=== PATIENT | female | born 1940 | race Caucasian/White ===

== ENCOUNTER → 2017-05-29 | Outpatient (CLI) | payer OTHER, MEDICARE ==
[~2017-05-29] VITALS: Ht 180.3 cm; Wt 100.2 kg
[~2017-05-29] MED LIST: CALCIUM CITRAT1 EA19 PO; CARISOPRODOL 3350 MG PO; CO Q-1010 MG PO; COSAMIN DS CAP1 EAC1 PO; FISH OIL 1,2001 EAC4 PO; MAGNESIUM400 MG PO; NABUMETONE 750750 M1 PO; NORCO 5-325 TA1 EACH PO; PRAVACHOL 20 MG20 M1 PO; PREDNISONE 5 MG5 M1 PO; SUPER B COMPLE1 EAC3 PO; VITAMIN D1000 UNI1 PO; ZANTAC 150MG T150 M1 PO
--- NOTE | ~2017-05-29 | HPC ---
[facility] [place] [address] PAIN MANAGEMENT CONSULTATION Name: LIZETH CORDOVA REID Room #: REG CORTNEY Hebert#: [id number] Admission: 05/29/17 Attend Phys: Ayden Pettit DO Discharge: Date of : 41 Report #: [id number] THIS REPORT FOR: //name// CC: Rick Pettit DATE OF SERVICE: 05/29/2017 HISTORY OF PRESENT ILLNESS: Ms. Cordova is a pleasant 76-year-old female, seen in consultation at the request of Dr. Kang for evaluation of pain in left hip, low back. The patient was prior seen greater than 4 years ago for radicular pain. She was referred by Dr. Kang for a new pain, right low back; consideration for epidural injection, facet joint injections, hip intraarticular injection or injections as indicated. Ms. Cordova provides us with a detailed history for her current pain generator. She notes she developed pain in the right hip on 04/04/2016. No specific antecedent trauma, though she had been sleeping on her side for a period of time. Pain got worse. She had an anti-inflammatory injection in her hip by nurse practitioner, Mamadou. Was given some hydrocodone with nominal efficacy (injection was on 04/10/2017). On 04/25/2017, she followed up with Dr. Kang. He gave her steroid injection in the right hip. It seemed to help for a short bit, and gave her Medrol Dosepak, gabapentin and Percocet. By 05/12, pain was not improved. It was getting worse. She was having difficulty walking. Pain was in the right buttock. Dr. Kang did an adjustment on her right hip, send her for x-rays. While the x-rays did show an old L1 compression fracture, it showed no other significant pathology. Following the hip adjustment, the hip pain got better for a short period, but she had pain in mid back that night. They did renew the Medrol Dosepak and the Percocet. She notes the pain moved from the right hip and back, into the left side, after the hip adjustment. The right hip has been relatively unremarkable since that time. Beginning about 05/14/2017, pain has been a problem in that left hip, to the point that it is excruciating with walking. She followed up with her chiropractor who did some adjustments and acupuncture, all with nominal efficacy. Pain has continued on the left side. Fortunately, the right hip really is unremarkable, but she is still having significant pain with walking. She ultimately ended up in the [facility] ER on 05/19/2017. They did an MRI of the back and hips (she did bring those copies with her today). Severe pain in the hip, buttock, posterior aspect in the leg. She was started on naproxen and orphenadrine, with again only nominal efficacy. She followed up with Dr. Kang on 05/26/2017. He readjusted the right hip, gave the left hip an injection and referred her to the dc. Currently, she notes the pain is exacerbated with standing and walking. Pain is [facility] [address] [place] [address] PAIN MANAGEMENT CONSULTATION Name: LIZETH CORDOVA Room #: REG CORTNEY Hebert#: [id number] Admission: 05/29/17 Attend Phys: Ayden Pettit, DO Discharge: Date of : 41 Report #: [id number] exclusively in the left buttock, a little bit the low back and into the groin. She notes episodically once or twice she has had pain radiating below the knee, but typically pain is in the posterior buttock, hip and groin in the left side. She rates it anywhere from 8-10 on a VAS. REVIEW OF SYSTEMS: Complete review of systems is attached to chart and gone over with the patient. She is . She does not smoke, drink alcohol to excess. She has enjoyed remarkably good health. She uses a little bit of Lasix p.r.n. with potassium supplement for some lower extremity edema. She takes a statin for dyslipidemia, Zantac for gastroesophageal reflux and Requip for restless legs syndrome. Otherwise, at 76 years of age, Ms. Cordova has enjoyed remarkably good health. She has had some cosmetic surgical procedures, a tonsillectomy and a partial hysterectomy. She has been retired for 7 years. Her pain impact score is 49 on a 50. PHYSICAL EXAMINATION: GENERAL: Reveals a 5 feet, 193 pound female. Subjective pain score is 8 on a VAS. VITAL SIGNS: Blood pressure is elevated at 186/99, pulse is 67, respirations 16. NEUROLOGIC: Cranial nerves 2 through 12 are grossly intact. HEENT: Pupils equal, react to light and accommodation. Extraocular muscles are intact. NECK: Thyroid is unremarkable. Cervical range of motion is full. Upper extremity strength is preserved. HEART: Regular rhythmical without murmur. LUNGS: Clear to auscultation. ABDOMEN: Benign. EXTREMITIES: Rises from chair using armrests. Has an antalgic gait, favoring the left leg. Left hip flexion and rotation exacerbates pain. Straight leg raise, however, is negative. Lower extremity strength is generally symmetric with objective muscles showing perhaps 4/5, but some pain with movement of the left hip and leg and upper thigh. Patellar and Achilles reflexes are preserved. Betty test is modestly positive, but no significant tenderness noted in the SI joint. DIAGNOSTIC STUDIES: Include the aforementioned MRI of the lumbar spine, dated 05/19/2017. There is an old inferior healed compression fracture at L1, 50 percent loss of height, 5 mm anterolisthesis of L4 on L5. This could cause some neural foraminal narrowing, though radiologist notes specifically no significant impingement here. There is some posterior paraspinal muscle atrophy noted. Left hip shows mild degenerative changes involving the hip proper. ASSESSMENT: 1. Left hip degenerative joint disease. 2. Component of SI mediated pain, myofascial pain component, with remote [facility] [address] [place] [address] PAIN MANAGEMENT CONSULTATION Name: LIZETH CORDOVA REID Room #: REG Jt Hebert#: [id number] Admission: 05/29/17 Attend Phys: Ayden Pettit DO Discharge: Date of : 41 Report #: [id number] possibility of being a unique presentation of right lumbar radiculopathy. RECOMMENDATION: Discussion with the patient today about therapeutic option. We have elected to move forward with the left hip joint injection under fluoroscopy today. Follow up in 1 week for reevaluation. We will move forward in 1 week with either a left SI joint injection or lumbar epidural injection under fluoroscopy, depending on clinical exam and efficacy today. Thank you for allowing me to participate in Ms. Cordova's care. I will keep you abreast of her progress. PROCEDURE NOTE: Left hip joint injection under fluoroscopy. DESCRIPTION OF PROCEDURE: After written informed consent was obtained, the patient was taken to fluoroscopy suite, placed in the supine position. Skin overlying the left hip was cleansed with ChloraPrep. Skin wheal with Xylocaine was raised. A 22-gauge stylet needle was placed to contact the left hip joint. Negative aspiration was accomplished. Initial needle placement did cause a little irritation of the femoral nerve. The needle was repositioned. Second needle position did not reproduce any femoral nerve symptoms. Negative aspiration was accomplished. 1 mL of Omnipaque was injected, which showed spread within the joints. This was followed with 40 mg triamcinolone plus 2 mL of 0.5% preservative-free bupivacaine. Needle was removed. The area was cleansed, Band-Aids applied. The patient was told to use ice to the area today, look for signs of infection. Discharged in stable condition, noting some incremental improvement of baseline pain, in fact noting pain was down to about 5 on a VAS score. Discharged in stable condition. Follow up next week for reevaluation and consideration for left SI or epidural injection under fluoroscopy, depending on clinical exam at that time. <ELECTRONICALLY SIGNED> By: Ayden Pettit DO 05/31/17 0811 [id number] Ayden Pettit DO /nt
[2017-05-29 11:21] VITALS: BP 186/99
== END | disposition home or self-care (01) ==
LOC: PAIN 07:22
DX: M54.16 Radiculopathy, lumbar region (principal); M16.12 Unilateral primary osteoarthritis, left hip; M53.3 Sacrococcygeal disorders, not elsewhere classified; M79.1 Myalgia; Z98.890 Other specified postprocedural states; Z90.710 Acquired absence of both cervix and uterus; E78.5 Hyperlipidemia, unspecified; K21.9 Gastro-esophageal reflux disease without esophagitis; Z79.899 Other long term (current) drug therapy; G25.81 Restless legs syndrome

== ENCOUNTER → 2017-06-05 | Outpatient (CLI) | payer OTHER, MEDICARE ==
[~2017-06-05] VITALS: Ht 177.8 cm; Wt 87.5 kg
[~2017-06-05] MED LIST changes: +FENTANYL1 EAC3; +OXYCODONE HCL PO
--- NOTE | ~2017-06-05 | HPC ---
[facility] [address] [place] [facility] [place] [address] PAIN MANAGEMENT CONSULTATION Name: LIZETH CORDOVA REID Room #: REG GEOFFREYJt Hebert#: [id number] Admission: 06/05/17 Attend Phys: Ayden Pettit DO Discharge: Date of : 41 Report #: [id number] THIS REPORT FOR: //name// CC: Rick Pettit The patient is a delightful 76-year-old female seen 05/29/2017 in consult, diagnosed with lumbar radiculopathy, component of left hip pain. I did a left hip joint injection at that time, we elected to move forward with epidural injection under fluoroscopy today if symptoms do not alon. In the interval since I last saw her, she has had increasing pain. She did have Synvisc type injections in her knees, saw orthopedic surgeon, it sounds like she may actually have had another steroid injection in her left hip within about 4 days. She notes pain is across the low back exacerbated with standing, walking and bending, radiates all the way down the left leg to the foot. ASSESSMENT: Symptomatic lumbar radiculopathy, clinical exam and history, failed hip joint injection, I think the pain is likely more as we discussed at her initial visit. RECOMMENDATION: Proceed with epidural injection under fluoroscopy today. Follow up in 10 days for reevaluation, may consider SI joint injections only if indicated clinically at that time. PROCEDURE NOTE: Lumbar epidural injection under fluoroscopy. PROCEDURE NOTE: After both written and informed consent to include risk of spinal cord damage, increased pain, weakness and dural puncture, the patient was taken to the fluoroscopy suite, placed in the prone position. After sterile prep and drape, a skin wheal with lidocaine was raised. A 22-gauge epidural Tuohy needle was inserted in the midline at L5-S1 with good loss to resistance. Negative aspiration for cerebrospinal fluid or blood was noted. Then 1 mL of Omnipaque under biplanar fluoroscopy showed good spread within the epidural space. This was followed with 80 mg of triamcinolone plus 1 mL of 1.5% preservative-free Xylocaine, 0.5 mL Xylocaine was then injected to flush the needle; it was removed. The patient was monitored for an appropriate period of time and discharged in good and stable condition. By: [id number] Ayden Pettit DO /nt
[2017-06-05 11:51] VITALS: BP 115/57
== END | disposition home or self-care (01) ==
LOC: PAIN 07:17
DX: M54.16 Radiculopathy, lumbar region (principal); M25.552 Pain in left hip; Z98.890 Other specified postprocedural states; Z79.899 Other long term (current) drug therapy

== ENCOUNTER → 2017-06-15 | Outpatient (CLI) | payer OTHER, MEDICARE ==
[~2017-06-15] VITALS: Ht 180.3 cm; Wt 98.4 kg
[~2017-06-15] MED LIST changes: +FUROSEMIDE 20 M20 M1 PO; +POTASSIUM20 PO; +REQUIP3 MG PO
--- NOTE | ~2017-06-15 | HPC ---
[facility] [place] [address] PAIN MANAGEMENT CONSULTATION Name: LIZETH CORDOVA REID Room #: REG CORTNEY [place]ina.#: [id number] Admission: 06/15/17 Attend Phys: Ayden Pettit DO Discharge: Date of : 41 Report #: [id number] THIS REPORT FOR: //name// CC: Rick Pettit DATE OF SERVICE: 06/15/2017 The patient is a very pleasant 76-year-old female seen 06/05/2017. Given epidural injection L5-S1. She noted dramatic improvement of baseline pain though notes pain still remains problematic in the low back. She rates her pain 5 on VAS. She is planning on traveling to the [place] to distribute her sister's ashes, she and a lifelong friend are traveling on to [place] for a cruise. The patient notes that her primary physician has started her on a Duragesic patch at 12 mcg using oxycodone 10 mg 1 or 2 a day. She is seeking multimodal therapy including acupuncture, massage and physical therapy. With ongoing pain that interferes with function, we have elected to repeat epidural injection under fluoroscopy today. I encouraged gradual wean of her opiate analgesics through her general road supervisor physician. Continue with multimodal therapy including range of motion and activity. PHYSICAL EXAMINATION: Shows a 76-year-old female, BMI is 30.3 kilograms per meter squared. Blood pressure 126/57, pulse 87, respirations 20. Rises from chair using armrest. Diffuse tenderness across the low back. Lumbar flexion is modestly limited. Positive straight leg raise on the left, though pain is improving and symptoms appear to be less. She has had again greater than 80% ongoing relief following the epidural injection, which she would like to repeat this today. ASSESSMENT: Symptomatic lumbar radiculopathy. PROCEDURE: Midline lumbar epidural injection under fluoroscopy. PROCEDURE NOTE: After both written and informed consent to include risk of spinal cord damage, increased pain, weakness and dural puncture, the patient was taken to the fluoroscopy suite, placed in the prone position. After sterile prep and drape, a skin wheal with lidocaine was raised. A 22-gauge epidural Tuohy needle was inserted in the midline at L4-L5 with good loss to resistance. Negative aspiration for cerebrospinal fluid or blood was noted. Then 1 mL of Omnipaque under biplanar fluoroscopy showed good spread within the epidural space. This was followed with 80 mg of triamcinolone plus 1 mL of 1.5% preservative-free Xylocaine, 0.5 mL Xylocaine was then injected to flush the needle; it was removed. The patient was monitored for an appropriate period of time and discharged in good and stable condition. [address] [address] PAIN MANAGEMENT CONSULTATION Name: LIZETH CORDOVA Room #: REG CORTNEY Hebert#: [id number] Admission: 06/15/17 Attend Phys: Ayden Pettit DO Discharge: Date of : 41 Report #: [id number] Follow up simply as needed. <ELECTRONICALLY SIGNED> By: Ayden Pettit DO 06/19/17 0840 [id number] Ayden Pettit DO /nt
[2017-06-15 14:16] VITALS: BP 126/57
== END | disposition home or self-care (01) ==
LOC: PAIN 06:39
DX: M54.16 Radiculopathy, lumbar region (principal); Z79.891 Long term (current) use of opiate analgesic

== ENCOUNTER → 2017-07-14 | Outpatient (CLI) | payer OTHER, MEDICARE ==
[~2017-07-14] VITALS: Ht 180.3 cm; Wt 95.4 kg
[~2017-07-14] MED LIST changes: +CYMBALTA30 MG PO; +DURAGESIC25 MCG/HR TRANSDERM; -FENTANYL1 EAC3; +NAPROXEN375 MG PO; +NEURONTIN 300300 M1 PO; +PERCOCET PO
--- NOTE | ~2017-07-14 | HPC ---
[facility] [address] [address] PAIN MANAGEMENT CONSULTATION Name: LIZETH CORDOVA REID Room #: REG Jt Medina.#: [id number] Admission: 07/14/17 Attend Phys: Ayden Pettit DO Discharge: Date of : 41 Report #: [id number] THIS REPORT FOR: //name// CC: Rick Pettit The patient is a 76-year-old female, well known to pain clinic, being treated for lumbar radiculopathy, left hip pain, appears to have some component of myofascial pain. She was last seen in pain clinic on 06/15/2017, with initially down to left hip joint injection on 05/29/2017, lumbar epidural injection 06/05/2017 and 06/15/2017. He returns to pain clinic today. Ongoing pain primarily in the small of the back. Does have a history of L1 old compression fracture, history of osteopenia, though she was treated with Boniva for about 3 years and the most recent bone scans have been unremarkable. She notes pain is consistent in the low back, exacerbated with walking. She is getting a little more deconditioned. She has been going to the chiropractic for some time and has had some episodes there with acute spasm in the mid to low back. She notes the pain is exacerbated with standing, bending over or trying to get up. PHYSICAL EXAMINATION: Shows a 76-year-old female, BMI is 29.4 kilograms per meter squared. Blood pressure is quite elevated today 172/113, pulse is 114, respirations are 16. Rises from the chair using armrest, markedly antalgic gait. Lumbar flexion is limited about 80 degrees. Has little tenderness in the low back about L4-L5, really nothing over the midline at T12-L1 area. Lower extremity strength, however, is symmetric. Straight leg raise is negative. Patellar and Achilles reflexes are preserved. I did order x-rays of the lumbar spine. While not read by the radiologist, it appears that she has had a significant loss of disk height between L5-S1 and a little bit between L2 and L3. The L5 vertebral body appears to have parallel endplates. No obvious compression fractures noted. Again, history of old L1 compression fracture. It is wedge shaped with significant angling of the superior endplate. ASSESSMENT: Myofascial pain component, axial back pain in a pleasant 76-year-old female who is becoming a little more deconditioned, history of lumbar radiculopathy and left hip pain. RECOMMENDATIONS: We will start the patient on Aleve 375 mg b.i.d. and Cymbalta 30 mg 1 a day. Strongly encouraged increased range of motion, at least walking daily. Follow up in 4 weeks for reevaluation. We may increase the Cymbalta 60 mg at that time. [address] [address] PAIN MANAGEMENT CONSULTATION Name: LIZETH CORDOVA REID Room #: REG CORTNEY Hebert#: [id number] Admission: 07/14/17 Attend Phys: Ayden Pettit DO Discharge: Date of : 41 Report #: [id number] Discharged in good and stable condition. <ELECTRONICALLY SIGNED> By: Ayden Pettit DO 07/17/17 0929 [id number] [id number] Ayden Pettit DO /nt
[2017-07-14 11:12] VITALS: BP 172/113
== END ==
LOC: PAIN 08:21
DX: M47.896 Other spondylosis, lumbar region (principal)